=== PATIENT | male | born 1985 | race Caucasian/White ===

== ENCOUNTER 2024-05-12 12:32 | Outpatient (CLI) | payer OTHER | END 2024-05-12 12:33 | disposition home or self-care (01) | LOC: MRI 12:32 | PROVIDERS: ATTEND Psychiatry & Neurology Neurology | DX: I63.9 Cerebral infarction, unspecified (principal) | CPT/HCPCS: 70551; 93225; 93226; 93880 ==

== ENCOUNTER 2024-05-17 13:28 | Emergency (ER) | payer OTHER ==
[2024-05-17 16:58] LABS: #Basophils 0.05 10x3/uL (0.0-0.2); %Monocytes 8.5 % (0.0-10.0); %Neutrophils 57.3 % (42.0-75.0); Hematocrit 37.8 % (42.0-52.0); Hemoglobin 12.6 g/dL (14.0-18.0); Mean Corpuscular HGB CONC 33.3 g/dL (32.0-36.0); Mean Corpuscular Hemoglobin 29.8 pg (27.0-31.0); Mean Corpuscular Volume 89.4 fL (78.0-98.0); Platelet Count 260 10x3/uL (130-400); RBC Distribution Width 13.6 % (11.5-14.5); Red Blood Cell (RBC) Count 4.23 mill/uL (4.70-6.10)
[2024-05-17 17:20] LABS: Acetaminophen Less than 10 mcg/mL (10.0-30.0); Alcohol Less than 10.0 mg/dL (Less than 10); Salicylate Less than 8.0 mg/dL (15.0-30.0)
[2024-05-17 17:24] LABS: ALT (SGPT) 20 U/L (8-55); AST (SGOT) 29 U/L (5-34); Albumin 3.8 g/dL (3.5-5.0); Alkaline Phosphatase 78 U/L (40-110); Anion Gap 15 mmol/L (10-20); BUN (Urea Nitrogen) 21 mg/dL (8.9-20.6); Bilirubin, Total 0.4 mg/dL (0.2-1.2); Calc. Creatinine Clearance 0 mL/min (70-130); Calcium 8.7 mg/dL (7.8-10.44); Carbon Dioxide 23 mmol/L (22-29); Chloride 105 mmol/L (98-107); Estimated GFR 114; Globulin 2.8 g/dL (2.4-3.5); Glucose 119 mg/dL (70-105); Protein, Total 6.6 g/dL (6.0-8.3); Sodium 139 mmol/L (136-145)
== END 2024-05-17 20:30 | disposition home or self-care (01) ==
LOC: ERS 13:28
DX: Z00.00 Encounter for general adult medical examination without abnormal findings (principal); G62.9 Polyneuropathy, unspecified; Z59.00 Homelessness unspecified
CPT/HCPCS: 36415; 80053; 80307; 82140; 85025; 99281